=== PATIENT | female | born 1970 | race Hispanic/Latino ===

== ENCOUNTER 2018-02-15 13:13 | Emergency (ER) | payer BC ==
[~2018-02-15] VITALS: Ht 170.2 cm; Wt 84.8 kg
--- OUTSIDE RECORDS SUMMARY | 2018-02-15 13:18 | XMS REPORT | Continuity of Care Document ---
Author Author [employer] [facility] Interface Address Unknown Phone Unavailable Problems Problem Status Onset Date Classification Date Reported Comments Source N17.9 - ACUTE KIDNEY FAILURE, UNSPECIF Active 12/19/2017 [facility] Medications Medication Details Route Status Patient Instructions Ordering Provider Order Date Source Allergies, Adverse Reactions, Alerts Substance Category Reaction Severity Reaction type Status Date Reported Comments Source Immunizations Immunization Date Given Site Status Last Updated Comments Source Results Order Name Results Value Reference Range Date Interpretation Comments Source Renal vessels Doppler US Renal vessels Doppler US EXAM: US RENAL WITH DOPPLER DATE: 12/27/2017 8:35 AM CDT INDICATION: - N18.4 Chronic kidney disease, stage 4 (severe), R10.9 Unspecified abdominal pain ADDITIONAL INFORMATION: None. COMPARISON: 12/19/2017 retroperitoneal complete ultrasound. TECHNIQUE: Multiplanar grayscale, color Doppler and spectral Doppler ultrasound of the kidneys and urinary bladder. DISCUSSION: Right kidney: Hydronephrosis: None. Size: 11.8 x 4.4 x 4.9 cm. Echogenicity: Diffuse mild increased renal cortical echogenicity. Calculi: None. Cysts: None. Masses: None. Left kidney: Hydronephrosis: None. Size: 11.2 x 5.9 x 5.0 cm. Echogenicity: Diffuse mild increased renal cortical echogenicity. Calculi: None. Cysts: None. Masses: None. Bladder: Normal. Right Main Renal Artery: Patent. No elevated velocities. No parvus tardus waveforms. Right RA:Aorta Ratio: 2.2 Right Intrarenal/Arcuate Arteries: Patent. Right Superior RI: 0. 52 Right Middle RI: 0. 49 Right Inferior RI: 0. 59 Left Main Renal Artery: Patent. No elevated velocities. No parvus tardus waveforms. Left RA:Aorta Ratio: 1.3 Left Intrarenal/Arcuate Arteries: Patent. Left Superior RI: 0. 48 Left Middle RI: 0.50 Left Inferior RI: 0. 63 Main Renal Veins: Patent. IMPRESSION: 1. Stable mild diffuse increased renal cortical echogenicity in both kidneys, a nonspecific finding most commonly caused by underlying medical renal disease. 2. No renal Doppler/flow abnormalities. No sonographic evidence of renal artery stenosis. Bilateral renal veins are patent. 12/27/2017 - - Read by: Eduardo Mccarthy MD Dictated Date/time: 12/27/17 09:57 Electronically Signed by: Eduardo Mccarthy MD 12/27/17 10:02 FINAL REPORT [facility] Retroperitoneal Complete US Retroperitoneal Complete US EXAM: US RETROPERITONEAL COMPLETE DATE: 12/19/2017 2:17 PM CDT INDICATION: - N17.9 Acute kidney failure, unspecified. Severe lower back pain. History of acute strep throat. ADDITIONAL INFORMATION: None. COMPARISON: None. TECHNIQUE: Multiplanar grayscale and color Doppler ultrasound images of the kidneys, aorta, IVC and urinary bladder. DISCUSSION: Right kidney Hydronephrosis: None. Size: 12.5 x 4.3 x 5.9 cm Echogenicity: Mild diffuse increased cortical echogenicity. Parenchymal thickness and contour: Normal. Calculi: None. Cysts: None. Masses: None. Left kidney Hydronephrosis: None. Size: 11.8 x 6.0 x 5.2 cm Echogenicity: Mild diffuse increased renal cortical echogenicity. Parenchymal thickness and contour: Normal. Calculi: None. Cysts: None. Masses: None. Abdominal aorta:There is no sonographic evidence of aneurysm or of dissection or visualized. IVC: Normal where visualized. Bladder: No wall thickening, masses, or calculi are seen. Normal ureteral jets are seen confirming bilateral ureteral patency. IMPRESSION: 1. Mild diffuse increased renal cortical echogenicity in both kidneys, a nonspecific finding most commonly caused by underlying medical renal disease. 2. No hydronephrosis, masses, or calculi are seen in either kidney. 3. No abnormalities of the urinary bladder are seen. 12/19/2017 - - Read by: Eduardo Mccarthy MD Dictated Date/time: 12/19/17 15:51 Electronically Signed by: Eduardo Mccarthy MD 12/19/17 15:53 FINAL REPORT [facility] Vital Signs Vital Sign Value Date Comments Source Encounters Location Location Details Encounter Type Encounter Number Reason For Visit Attending Provider ADM Date DC Date Status Source Procedures Procedure Code Date Perfomer Comments Source
[2018-02-15] MEDS ORDERED: HYDRALAZINE HCL 20 MG/ML VIAL IV STA (13:54)
[2018-02-15] MEDS ORDERED: ONDANSETRON HCL INJ 2 MG/ML VIAL IV ONE (14:00)
[2018-02-15] MEDS ORDERED: NITROGLYCERIN 2% OINT 1 GM PKT TOP ONE (14:00)
[2018-02-15] MEDS ORDERED: CLONIDINE HCL 0.1 MG TAB PO ONE (14:00)
[2018-02-15] MEDS ORDERED: ACETAMINOPHEN 325 MG TAB PO ONE (14:00)
[2018-02-15] MEDS ORDERED: CLONIDINE HCL 0.2 MG TAB PO NR (14:30)
--- NOTE | 2018-02-15 15:08 | Diagnostic Imaging Report ---
CT BRAIN [facility] HISTORY: Headache COMPARISON: None. TECHNIQUE: Noncontrast axial scans were obtained from skull base to the vertex. Coronal and sagittal reconstructions obtained from the axial data. One or more of the following dose reduction techniques were used: Automated exposure control, adjustment of the mA and/or kV according to patient size, and/or utilization of iterative reconstruction technique. DISCUSSION: Scalp/Skull: Unremarkable. Brain sulci: Appropriate for patient's age. Ventricles: Mild asymmetric prominence of the left lateral ventricle is within normal variation. The ventricles are otherwise normal in size and configuration. The temporal horns are not dilated. There is no bowing of the third ventricle. Extra-axial spaces: No masses or fluid collections. Minimal carotid siphon calcification is present. 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 No additional masses, hemorrhage, or large vascular territory acute infarct. Dural sinuses: No abnormal densities. Sellar/Suprasellar region: Partially empty sella. Skull base: Intact. Incidental findings: None. IMPRESSION: 1. No acute intracranial abnormalities. 2. Nonspecific partially empty sella. 3. 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 Signed by: Dr. Sidney Hutchinson M.D. on 02/15/2018 3:05 PM
[2018-02-15] MEDS ORDERED: CEFTRIAXONE SOD 1 GM VIAL IV ONE (15:15)
[2018-02-15 15:36] VITALS: BP 134/88
== END 2018-02-15 15:44 | disposition home or self-care (01) ==
LOC: FSED 13:13
DX: R51 Headache (principal); I10 Essential (primary) hypertension
CPT/HCPCS: 70450; 80053; 81003; 82553; 84484; 85025; 96374; 99284; J0360; J0696; J2405